=== PATIENT | male | born 1945 | race Hispanic/Latino ===

== ENCOUNTER 2018-02-23 10:16 | Emergency (ER) | payer MEDICARE ==
[2018-02-23] MEDS ORDERED: PERCOCET 5/325 PO ONE (11:52)
--- NOTE | 2018-02-23 11:56 | Emergency Department Report ---
ED Fall HPI - General Chief Complaint: Extremity Injury, Lower Stated Complaint: LEFT SIDE BACK PAIN Time Seen by Provider: 02/23/18 11:36 Source: patient, old records reviewed (old record under claus bernstein) Mode of arrival: Ambulatory - History of Present Illness Initial Comments: 72-year-old male presents to the hospital complaining of continued pain after fall 9 days ago patient slipped and fell backwards landing on his back. He seen and evaluated 4 days later on the here in the ER. He had a CT thoracic, CT lumbar, and CT pelvis to evaluate for fracture. Positive findings of L1 mild acute compression fracture. Patient is taking Percocet 7.5 mg, Toradol, and Zofran. Patient states he was also mildly dehydrated and received IV fluids and has been drinking plenty of water since. Patient is here because he's had persistent left sided lumbar pain and started to have right groin pain with movement as well. He is taking the Percocet without relief and having trouble sleeping. No complaints of urinary incontinence, paresthesias, or weakness. Pain is moderate, worse with palpation, movement, and ambulation. He expresses concern for kidney injury. Denies gross hematuria or abdominal pain. - Related Data Previous Rx's Medication Instructions Recorded Last Taken Type Cyclobenzaprine [Flexeril] 10 mg PO TID PRN #30 tablet 02/23/18 Unknown Rx Allergies Allergy/AdvReac Type Severity Reaction Status Date / Time codeine Allergy Unknown Verified 02/23/18 11:00 NSAIDS (Non-Steroidal Allergy Unknown Verified 02/23/18 11:00 Anti-Inflamma ED Review of Systems ROS: Stated complaint: LEFT SIDE BACK PAIN Other details as noted in HPI Comment: All other systems reviewed and negative ED Past Medical Hx - Past Medical History Hx Hypertension: Yes Hx Psychiatric Treatment: Yes (DEPRESSION , ANXIETY) Additional medical history: HIGH CHOLESTEROL - Surgical History Past Surgical History?: Yes Additional Surgical History: LOWER BACK SURGERY 2013 - Social History Smoking Status: Former Smoker Substance Use Type: None - Medications Home Medications: Home Medications Medication Instructions Recorded Confirmed Last Taken Type Cyclobenzaprine [Flexeril] 10 mg PO TID PRN #30 tablet 02/23/18 Unknown Rx ED Physical Exam - General Limitations: No Limitations - Other Other exam information: General: No limitations, patient is alert in no acute distress Head exam: Atraumatic, normocephalic Eyes exam: Normal appearance ENT: Moist mucous membrane Neck exam: Normal inspection, full range of motion, no meningismus nontender Respiratory exam: Clear to auscultation bilateral, no wheezes, rales, crackles Cardiovascular: Normal rate and rhythm, normal heart sounds Abdomen: Soft, nondistended, and nontender, with normal bowel sounds, no rebound, or guarding Extremity: Full range of motion normal inspection no deformity, right inguinal tenderness Back: Normal Inspection, full range of motion, left-sided lumbar tenderness Neurologic: Alert, oriented x3, cranial nerves intact, no motor or sensory deficit Psychiatric: normal affect, normal mood Skin: Warm, dry, intact ED Course Vital Signs 02/23/18 02/23/18 02/23/18 10:50 12:01 12:02 Temperature 97.9 F 98.4 F Pulse Rate 102 H 80 Respiratory 16 18 18 Rate Blood Pressure 134/84 Blood Pressure 142/79 [Left] O2 Sat by Pulse 96 96 Oximetry - Reevaluation(s) Reevaluation #1: 02/23/18 11:58 Additional Percocet 5mg ED Medical Decision Making - Medical Decision Making Patient have been continued pain from original injury 10 days ago. Patient had CT imaging of the areas of pain already which did not show any acute findings. Patient states he cannot take NSAIDs because of previous renal insufficiency. Recent labs revealed normal kidney function. Patient was prescribed 10 tablets of Toradol, Zofran, and Percocet 7.5 mg during after recent visit. I will add a muscle relaxant to his regimen and encouraged follow-up with orthopedics as originally suggested. No neurologic deficits. - Differential Diagnosis fracture, contusion, sprain Critical Care Time: No Critical care attestation.: If time is entered above; I have spent that time in minutes in the direct care of this critically ill patient, excluding procedure time. ED Disposition Clinical Impression: Compression fracture of L1 lumbar vertebra, Back pain, Strain of right inguinal muscle Disposition: - TO HOME OR SELFCARE Is pt being admited?: No Does the pt Need Aspirin: No Condition: Stable Instructions: Muscle Strain (ED), Thoracolumbar Fracture (ED), Back Pain (ED) Additional Instructions: Take the medications as prescribed. Follow up with your doctor and the orthopedic doctor provided for further management. Return if symptoms worsen. Prescriptions: Cyclobenzaprine [Flexeril] 10 mg PO TID PRN #30 tablet PRN Reason: Muscle Spasm Referrals: DEIRDRE DOCKERY [Primary Care Provider] - 3-5 Days LOGAN XIE MD [Staff Physician] - 3-5 Days Time of Disposition: 12:05
[2018-02-23] MEDS ORDERED: NORCO 5/325 ONE (11:58)
[2018-02-23 12:03] VITALS: BP 142/79
[2018-02-23] MEDS ORDERED: NORCO 5/325 PO ONE (12:39)
== END 2018-02-23 12:34 | disposition home or self-care (01) ==
LOC: ED 10:16
DX: S32.010A Wedge compression fracture of first lumbar vertebra, initial encounter for closed fracture (principal); S39.011A Strain of muscle, fascia and tendon of abdomen, initial encounter; I10 Essential (primary) hypertension; F41.9 Anxiety disorder, unspecified; F32.9 Major depressive disorder, single episode, unspecified; E78.00 Pure hypercholesterolemia, unspecified; Z87.891 Personal history of nicotine dependence; Z88.5 Allergy status to narcotic agent; W19.XXXA Unspecified fall, initial encounter; Y93.89 Activity, other specified; Y99.8 Other external cause status; Y92.89 Other specified places as the place of occurrence of the external cause
CPT/HCPCS: 99282